=== PATIENT | female | born 1990 | race Caucasian/White ===

== ENCOUNTER → 2018-10-19 16:33 | Outpatient (CLI) | payer OTHER | END | disposition home or self-care (01) | LOC: LAB 16:33 | DX: J11.1 Influenza due to unidentified influenza virus with other respiratory manifestations (principal); J11.89 Influenza due to unidentified influenza virus with other manifestations ==

== ENCOUNTER → 2019-03-03 06:28 | Outpatient (CLI) | payer OTHER | END | disposition home or self-care (01) | LOC: LAB 06:28 | DX: E11.8 Type 2 diabetes mellitus with unspecified complications (principal); E03.8 Other specified hypothyroidism ==

== ENCOUNTER → 2019-04-22 14:28 | Outpatient (CLI) | payer OTHER | END | disposition home or self-care (01) | LOC: LAB 14:28 | DX: E55.9 Vitamin D deficiency, unspecified (principal) ==

== ENCOUNTER 2019-08-26 14:39 | Outpatient (CLI) | payer OTHER | END 2019-08-26 14:42 | disposition home or self-care (01) | LOC: LAB 14:39 | DX: J11.1 Influenza due to unidentified influenza virus with other respiratory manifestations (principal); J06.9 Acute upper respiratory infection, unspecified ==

== ENCOUNTER 2020-01-12 16:26 | Outpatient (CLI) | payer OTHER | END 2020-01-12 16:33 | disposition home or self-care (01) | LOC: LAB 16:26 | PROVIDERS: ATTEND General Practice | DX: J11.1 Influenza due to unidentified influenza virus with other respiratory manifestations (principal); Z20.828 Contact with and (suspected) exposure to other viral communicable diseases; R05 Cough; R50.9 Fever, unspecified; R06.2 Wheezing; E55.9 Vitamin D deficiency, unspecified ==

== ENCOUNTER 2020-02-17 17:38 | Outpatient (CLI) | payer OTHER | END 2020-02-17 17:40 | disposition home or self-care (01) | LOC: PPH VACUNA 17:38 | DX: Z23 Encounter for immunization (principal) ==

== ENCOUNTER → 2020-05-10 15:24 | Outpatient (CLI) | payer OTHER | END | disposition home or self-care (01) | LOC: LAB 15:24 | PROVIDERS: ATTEND General Practice | DX: R05 Cough (principal); J11.1 Influenza due to unidentified influenza virus with other respiratory manifestations ==

== ENCOUNTER 2021-02-25 11:43 | Outpatient (CLI) | payer OTHER | END 2021-02-25 12:00 | disposition home or self-care (01) | LOC: PPH VACUNA 11:43 | DX: Z23 Encounter for immunization (principal) ==

== ENCOUNTER 2021-04-01 08:00 | Outpatient (CLI) | payer OTHER | END 2021-04-01 08:30 | disposition home or self-care (01) | LOC: PPH VACUNA 08:00 | PROVIDERS: ATTEND Emergency Medicine Pediatric Emergency Medicine | DX: Z23 Encounter for immunization (principal) ==

== ENCOUNTER → 2021-06-05 10:59 | Outpatient (CLI) | payer OTHER ==
[~2021-06-05 10:59] MED LIST: DOLOGEN CAPLET1 EACH PO; TUSNEL LIQUID178 ML PO; ZITHROMAX500 MG PO
== END | disposition home or self-care (01) ==
LOC: LAB 10:59
PROVIDERS: ATTEND Emergency Medicine Pediatric Emergency Medicine
DX: U07.1 COVID-19 (principal)

== ENCOUNTER 2021-06-06 20:33 | Emergency (ER) | payer OTHER ==
[~2021-06-06] VITALS: Ht 160 cm; Wt 54.4 kg
[2021-06-06] MEDS ORDERED: DOLOGEN CAPLET1 EACH PO (21:34)
[2021-06-06] MEDS ORDERED: ZITHROMAX500 MG PO (21:34)
[2021-06-06] MEDS ORDERED: TUSNEL LIQUID178 ML PO (21:34)
== END 2021-06-06 21:57 | disposition home or self-care (01) ==
LOC: ER 20:33
DX: U07.1 COVID-19 (principal)

== ENCOUNTER 2021-10-02 16:00 | Outpatient (CLI) | payer OTHER | END 2021-10-02 16:05 | disposition home or self-care (01) | LOC: LAB 16:00 | DX: U07.1 COVID-19 (principal) ==

== ENCOUNTER 2021-12-20 07:46 | Outpatient (CLI) | payer OTHER | END 2021-12-20 07:47 | disposition home or self-care (01) | LOC: LAB 07:46 | DX: D64.9 Anemia, unspecified (principal); N39.0 Urinary tract infection, site not specified; I10 Essential (primary) hypertension; M13.80 Other specified arthritis, unspecified site; K92.1 Melena; E78.2 Mixed hyperlipidemia; Z11.59 Encounter for screening for other viral diseases; Z22.7 Latent tuberculosis ==

== ENCOUNTER 2022-01-22 14:34 | Outpatient (CLI) | payer OTHER | END 2022-01-22 14:51 | disposition home or self-care (01) | LOC: LAB 14:34 | PROVIDERS: ATTEND Obstetrics & Gynecology | DX: Z20.828 Contact with and (suspected) exposure to other viral communicable diseases (principal); Z20.818 Contact with and (suspected) exposure to other bacterial communicable diseases ==

== ENCOUNTER 2022-02-19 08:00 | Outpatient (CLI) | payer OTHER | END 2022-02-19 08:05 | disposition home or self-care (01) | LOC: PPH VACUNA 08:00 | PROVIDERS: ATTEND Emergency Medicine Pediatric Emergency Medicine | DX: Z23 Encounter for immunization (principal) ==

== ENCOUNTER 2022-05-03 13:22 | Emergency (ER) | payer OTHER ==
[~2022-05-03] VITALS: Ht 160 cm; Wt 56.7 kg
== END 2022-05-03 18:00 | disposition home or self-care (01) ==
LOC: ER 13:22
DX: J09.X2 Influenza due to identified novel influenza A virus with other respiratory manifestations (principal); Z20.828 Contact with and (suspected) exposure to other viral communicable diseases

== ENCOUNTER → 2022-08-28 11:18 | Outpatient (CLI) | payer OTHER | END | disposition home or self-care (01) | LOC: LAB 11:18 | PROVIDERS: ATTEND Dentist General Practice | DX: Z20.822 Contact with and (suspected) exposure to COVID-19 (principal) ==

== ENCOUNTER → 2023-01-29 | Outpatient (CLI) | payer OTHER | END | disposition home or self-care (01) | LOC: PPH VACUNA 08:36 | PROVIDERS: ATTEND Emergency Medicine Pediatric Emergency Medicine | DX: Z23 Encounter for immunization (principal) ==

== ENCOUNTER → 2023-01-29 | Outpatient (CLI) | payer OTHER | END | disposition home or self-care (01) | LOC: PPH VACUNA | PROVIDERS: ATTEND Emergency Medicine Pediatric Emergency Medicine | DX: Z23 Encounter for immunization (principal) ==

== ENCOUNTER 2024-04-18 13:30 | Outpatient (CLI) | payer OTHER | END 2024-04-18 13:40 | disposition home or self-care (01) | LOC: PPH VACUNA 13:30 | PROVIDERS: ATTEND Emergency Medicine Pediatric Emergency Medicine | DX: Z23 Encounter for immunization (principal) ==

== ENCOUNTER 2024-04-18 15:16 | Outpatient (CLI) | payer OTHER | END 2024-04-18 15:20 | disposition home or self-care (01) | LOC: LAB 15:16 | DX: A64 Unspecified sexually transmitted disease (principal) ==

== ENCOUNTER → 2024-05-24 07:59 | Outpatient (CLI) | payer OTHER ==
[2024-05-24 08:34] LABS: URINE APPEARANCE Clear; URINE BILIRRUBIN Negative (NEGATIVE); URINE BLOOD Moderate; URINE COLOR Yellow; URINE GLUCOSE Negative (NEGATIVE); URINE KETONE Negative (NEGATIVE); URINE LEUKOCYTE Trace; URINE NITRATE Negative; URINE PROTEIN Negative (NEGATIVE); URINE UROBILINOGEN 0.2 E.U./dl
[2024-05-24 08:37] LABS: URINE BACTERIA 8.5 uL (0.0-1933); URINE EPITHELIAL CELLS 6.1 uL (0.0-38.8); URINE RBC 127.2 uL (0.0-20.8); URINE WBC 5.8 uL (0.0-23.2)
[2024-05-24 08:37] LABS: HEMATOCRIT 39.5 % (36.0-45.00); HEMOGLOBIN 13.3 g/dL (12.0-15.00); MEAN CELL VOLUME 88.4 fL (80.00-100.00); MEAN CORPUSCULAR HEMOGLOBIN 29.7 pg (27.00-32.0); MEAN CORPUSCULAR HGB CONC 33.6 g/dl (32.0-36.0); PLATELET COUNT 227 K/uL (150-450); RED BLOOD COUNT 4.47 M/uL (4.00-6.00); RED CELL DISTRIBUTION WIDTH 13.6 % (11.5-14.5)
[2024-05-24 10:10] LABS: ALBUMIN 3.2 gm/dL (3.4-5.0); BILIRUBIN TOTAL 0.46 mg/dL (0.3-1.2); CALCIUM 8.4 mg/dL (8.5-10.1); CHOL HDL RATIO 2.8 (0-5.0); CREATININE SERUM 0.62 mg/dL (0.55-1.02); GFR 111.55; GLOBULINA 3.4 G/DL (2.4-3.5); POTASSIUM 3.83 mEq/L (3.5-5.1); TOTAL PROTEIN 6.6 gm/dL (6.4-8.2); TSH 1.91 uIU/mL (0.358-3.74)
== END | disposition home or self-care (01) ==
LOC: LAB 07:59
DX: R73.09 Other abnormal glucose (principal); R53.83 Other fatigue; E78.5 Hyperlipidemia, unspecified; R30.0 Dysuria; R94.6 Abnormal results of thyroid function studies

== ENCOUNTER 2025-04-18 15:10 | Outpatient (CLI) | payer OTHER ==
[2025-04-20 10:10] LABS: HEPATITIS A ANTIBODY IGG Negative (Negative); HEPATITIS B SURFACE ANTIBODY Reactive (.)
== END 2025-04-18 15:14 | disposition home or self-care (01) ==
LOC: LAB 15:10
DX: A64 Unspecified sexually transmitted disease (principal); B15.9 Hepatitis A without hepatic coma; B17.10 Acute hepatitis C without hepatic coma